=== PATIENT | male | born 1955 | race Caucasian/White ===

== ENCOUNTER 2021-01-22 11:35 | Day surgery (SDC) | payer OTHER ==
[2021-01-17 13:36] VITALS: BMI 27.2
[2021-01-22] MEDS ORDERED: ROPIVACAINE HCL 0.5% 30ML VIAL ONE (13:26)
[2021-01-22] MEDS ORDERED: MIDAZOLAM HCL 2 MG/2 ML SINGLE DOSE VIAL ONE (13:26)
[2021-01-22] MEDS ORDERED: PROPOFOL 20 ML ONE ×2 (13:34)
[2021-01-22] MEDS ORDERED: DEXAMETHASONE SOD PHOSPHATE 4 MG/1 ML VIAL ONE (14:14)
[2021-01-22] MEDS ORDERED: ONDANSETRON 4 MG/2 ML VIAL ONE (14:14)
[2021-01-22] MEDS ORDERED: KETOROLAC TROMETHAMINE 30 MG/1 ML VIAL ONE (15:15)
[2021-01-22 16:31] VITALS: TEMP 97.8
[2021-01-22 16:38] VITALS: BP 120/68; PULSE 77
== END 2021-01-22 16:15 | disposition home or self-care (01) ==
LOC: FASU 11:35
PROVIDERS: ATTEND Orthopaedic Surgery Hand Surgery
PROC: 0L860ZZ Division of Left Lower Arm and Wrist Tendon, Open Approach (ICD-10-PCS; 2021-01-22)
PROC: 0PTN0ZZ Resection of Left Carpal, Open Approach (ICD-10-PCS; principal; 2021-01-22 14:06)
DX: M19.032 Primary osteoarthritis, left wrist (principal)
CPT/HCPCS: 73110-TC-LT-FY; 73130-TC-LT-FY